=== PATIENT | female | born 1990 | race African-American/Black ===

== ENCOUNTER 2020-05-25 15:53 | Emergency (ER) | payer BC ==
[~2020-05-25] VITALS: Ht 160 cm; Wt 59.0 kg
[2020-05-25] MEDS ORDERED: BACTRIM DS TAB1 EACH PO (17:41)
[2020-05-25] MEDS ORDERED: BACTRIM DS TAB1 EACH (17:45)
== END 2020-05-25 17:59 | disposition home or self-care (01) ==
LOC: ER 15:53
DX: S00.212A Abrasion of left eyelid and periocular area, initial encounter (principal); W55.03XA Scratched by cat, initial encounter; Y93.89 Activity, other specified; Y92.89 Other specified places as the place of occurrence of the external cause; Y99.8 Other external cause status